=== PATIENT | female | born 2000 | race Caucasian/White ===

== ENCOUNTER 2018-07-06 12:15 | Emergency (ER) | payer OTHER ==
[~2018-07-06] VITALS: Ht 149.9 cm; Wt 49.9 kg
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
== END 2018-07-06 13:35 | disposition left against medical advice (07) ==
LOC: ER 12:15
DX: Z53.21 Procedure and treatment not carried out due to patient leaving prior to being seen by health care provider (principal)
CPT/HCPCS: A4663